=== PATIENT | female | born 1960 ===

== ENCOUNTER 2017-07-11 11:13 | Emergency (ER) | payer MEDICAID ==
[2017-07-11 12:39] VITALS: BP 172/87
--- NOTE | 2017-07-11 13:33 | UC ---
Skin Complaint HPI - HPI Summary HPI Summary: 57 year old female presents with complains of rash under left breast. - History of Current Complaint Chief Complaint: UCRash Time Seen by Provider: 07/11/17 13:28 Stated Complaint: RASH Hx Obtained From: Patient Onset/Duration: Gradual Onset, Lasting Days Timing: Constant Onset Severity: Moderate Current Severity: Moderate - Allergy/Home Medications Allergies/Adverse Reactions: Allergies Allergy/AdvReac Type Severity Reaction Status Date / Time Codeine Allergy Intermediate Swelling Verified 07/11/17 12:40 Penicillins [PCN] Allergy Intermediate Rash Verified 07/11/17 12:40 Home Medications: Home Medications Blood Pressure Med 07/11/17 [History] Review of Systems Constitutional: Negative Skin: Rash Eyes: Negative ENT: Negative Respiratory: Negative Cardiovascular: Negative Gastrointestinal: Negative Genitourinary: Negative Motor: Negative Neurovascular: Negative Musculoskeletal: Negative Neurological: Negative Psychological: Negative All Other Systems Reviewed And Are Negative: Yes PMH/Surg Hx/FS Hx/Imm Hx Previously Healthy: Yes - Surgical History Surgical History: Yes Surgery Procedure, Year, and Place: colostomy - Family History Known Family History: Positive: None - Social History Alcohol Use: None Substance Use Type: Marijuana Smoking Status (MU): Former Smoker - Immunization History Most Recent Influenza Vaccination: not current Physical Exam Triage Information Reviewed: Yes Vital Signs: Initial Vital Signs Temp 36.9 C 07/11/17 12:34 Pulse 77 07/11/17 12:34 Resp 18 07/11/17 12:34 BP 172/87 07/11/17 12:34 Pulse Ox 97 07/11/17 12:34 Vital Signs Reviewed: Yes Eye Exam: Normal ENT Exam: Normal Dental Exam: Normal Neck exam: Normal Neck: Positive: 1 Respiratory Exam: Normal Cardiovascular Exam: Normal Abdominal Exam: Normal Musculoskeletal Exam: Normal Neurological Exam: Normal Psychological Exam: Normal Skin: Positive: rashes Course/Dx - Diagnoses Provider Diagnoses: rash under left breast Discharge - Discharge Plan Condition: Stable Disposition: HOME Prescriptions: Clotrimazole/Betamethasone* [Lotrisone Cream*] 1 applic TOPICAL BID #45 gm Patient Education Materials: Tinea Corporis (ED), Acute Rash (ED), Skin Yeast Infection (ED) Referrals: Melvin Coffman MD [Primary Care Provider] - Amrita Virk [Medical Doctor] -
== END 2017-07-11 13:44 | disposition home or self-care (01) ==
LOC: UCCORT 11:13
DX: R21 Rash and other nonspecific skin eruption (principal); Z88.5 Allergy status to narcotic agent; Z88.0 Allergy status to penicillin; F12.90 Cannabis use, unspecified, uncomplicated; Z87.891 Personal history of nicotine dependence
CPT/HCPCS: 99202; G0463